=== PATIENT | female | born 1945 | race Caucasian/White ===

== ENCOUNTER 2017-04-07 17:45 | Inpatient (IN) ==
[2017-04-07] MEDS ORDERED: ONDANSETRON 4 MG/2 ML INJECTION IVP ONE (17:55)
[2017-04-07] MEDS ORDERED: HYDROMORPHONE 2 MG/ML INJECTION IVP ONE ×2 (17:55→18:55)
--- NOTE | 2017-04-07 18:29 | Emergency Department Report ---
Lower Extremity Injury HPI - General Chief Complaint: Extremity Injury, Lower Stated Complaint: l hip pain, fall Time Seen by Provider: 04/07/17 18:26 Source: patient, EMS Mode of arrival: EMS Limitations: no limitations - History of Present Illness HPI Narrative: PT presents with left hip pain after falling from a standing position. Pt denies dizziness or lightheadedness, or chest pain prior to fall. Family reports initially pt was holding her right knee which is known to be arthritic and were concerned about additional injury MD complaint: hip injury, knee injury Onset (ago): minute(s) Injury: Left: hip, knee Place: home Severity: moderate Context: fall Other symptoms: none Treatments prior to arrival: splint (per EMS) - Related Data Home Medications Medication Instructions Recorded Confirmed Levothyroxine Tab [Synthroid] 75 mcg PO DAILY #0 02/28/12 04/07/17 Calcium Carbonate [Caltrate] 600 mg PO DAILY 04/07/17 04/07/17 Naproxen [Aleve] 220 mg PO BID PRN 04/07/17 04/07/17 Allergies Allergy/AdvReac Type Severity Reaction Status Date / Time No Known Allergies Allergy Verified 04/07/17 18:36 Review of Systems Constitutional: Denies: fever, chills Cardiovascular: Denies: chest pain Respiratory: Denies: cough, dyspnea Gastrointestinal: Denies: nausea, vomiting, diarrhea Musculoskeletal: Reports: joint swelling, arthralgia Neurological: Denies: headache Psychiatric: Denies: anxiety Endocrine: Denies: fatigue PFSH Patient Stated Medical History Other Musculoskeletal Yes: arthritis - Social History Smoking status: Never smoker Physical Exam - Limitations Limitations: no limitations - General General appearance: alert - Normal Exams: Head:: Normocephalic without trauma Eyes:: Pupils are PERRLA w/ EOMI Neck:: Full range of motion, without adenopathy Chest/Respirations:: Clear all lee, with good airflow, and symmetry bilaterally Cardiovascular:: Regular rate and rhythm, without murmur or gallop, Pulses 2+ all extremities Abdomen:: Bowel sounds positive, soft, non-tender, non-distended Integumentary:: No rashes Neurological:: Patient is alert, and oriented Psychiatric:: Patient exhibits, appropriate attention, emotion and affect - Expanded Lower Extremity Exam Hip/Pelvis exam: Present: normal inspection, tenderness, deformity, external rotation, shortening Knee exam: Present: normal inspection. Absent: tenderness, swelling Lower leg exam: Present: normal inspection (N/V/I). Absent: tenderness, swelling Course Vital Signs Temperature 98.1 F 04/07/17 17:51 Pulse Rate 73 04/07/17 17:51 Respiratory Rate 20 04/07/17 17:51 Pulse Oximetry 100 04/07/17 17:51 Temperature 98.1 F 04/07/17 17:51 Pulse Rate 78 04/07/17 19:02 Respiratory Rate 19 04/07/17 19:02 Blood Pressure 126/72 04/07/17 19:02 Pulse Oximetry 96 04/07/17 19:02 Extremity Injury, Lower - MDM Narrative Medical decision making narrative: Lab and xray reviewed resulting in left femoral head and neck fracture. Labs obtained for baseline for surgery. Pt has received Dilaudid, Zofran, and Valium for pain control with positive result. Dr Michaels notified of diagnostic findings, pt to be admitted to Dr Rodgers the hospitalist - Differential Diagnosis Likely: acute internal derangement of knee, fracture of femur, fracture of hip - Lab Data Attestation: I reviewed the patient's lab results. Result diagrams: 04/07/17 19:21 04/07/17 19:21 Lab Results 04/07/17 Range/Units 19:21 WBC 12.4 H (4.5-11.0) T/MM3 RBC 4.29 (4.00-5.20) M/MM3 Hgb 12.7 (12-16) GM/DL Hct 40.0 (36-46) % MCV 93.2 (80-100) UM3 MCH 29.6 (26-34) UUG MCHC 31.8 (31-37) GM/DL RDW Std Deviation 46.3 (36.9-50.2) FL Plt Count 249 (130-400) T/MM3 MPV 8.8 L (9.4-12.4) UM3 - Radiology Data Attestation: I reviewed the patient's radiology results. Disposition Clinical Impression: Femoral neck fracture Qualifiers: Encounter type: initial encounter Fracture type: closed Laterality: left Qualified Code(s): S72.002A - Fracture of unspecified part of neck of left femur , initial encounter for closed fracture Disposition: 02 To [facility] [place] Acute Care Condition: Improved Additional Instructions: per Dr Michaels Prescriptions: No Action Calcium Carbonate [Caltrate] 600 mg PO DAILY Levothyroxine Tab [Synthroid] 75 mcg PO DAILY #0 Naproxen [Aleve] 220 mg PO BID PRN PRN Reason: Pain Referrals: Ron Lopez MD [Physician] - Time of Disposition: 19:36 - Seen By: tyree
--- NOTE | 2017-04-07 19:49 | History & Physical Report ---
<Jeff Blanc - Last Filed: 04/07/17 21:53> History of Present Illness Date: 04/07/17 Chief complaint: left hip pain s/p fall HPI: Ms Contreras is a 71 y/o female w/ h/o osteoarthritis, Right JOVANNA and hypothyroidism who presents to ED at [facility] [place] brought by EMS d/t mechanical fall on her left hip. Patient states she was bending over to let the dog out, holding on the side of the bed and lost her balance and fell backwards, and fell on her left hip and hit her elbow on the night stand. She noted pain in the left hip after the fall. Daughter in the room at the time of the fall. She also c/o right knee pain as well but does not recall having trauma to the right knee. Patient denies chest pain, dyspnea, lightheadedness, dizziness or recent illness. Patient denies h/o CAD, HTN, HLD, lung issues and DM and states she is otherwise "very active and healthy". In ED, patient had xray left hip which revealed a left femoral head fracture extending into the femoral neck. ER provider discussed the patient's case w/ Dr. Michaels of Orthopedic surgery and he recommended admission to the hospitalist service and he will consult. Patient given Valium 5mg IV x one for muscle spasma, and Dilaudid 0.5mg IV on two separate occasions for pain; Patient also given Zofran 4 mg IV x one. Patient per report is resting more comfortably now. CXR in ER showed no acute changes and EKG showed a sinus rhythm, rate of 75 beats/minute and no ectopy. Patient will be admitted to the Hospitalist service for further evaluation and management. Review of Systems Review of systems: Constitutional: Denies: fever, chills Cardiovascular: Denies: chest pain Respiratory: Denies: cough, dyspnea Gastrointestinal: Denies: nausea, vomiting, diarrhea Musculoskeletal: Reports: joint swelling, arthralgia Neurological: Denies: headache; Denies numbness, tingling and focal weakness Psychiatric: Denies: anxiety Endocrine: Denies: fatigue PFSH Patient Stated Medical History Other Musculoskeletal Yes: arthritis Clinic Medical History Femoral neck fracture (Acute Medical) Hypothyroidism Surgical History: H/o Right JOVANNA Family History: No significant family history reported. H/o "arthritis" on mother's side - Social History Smoking status: Never smoker Medications Home Medications Medication Instructions Recorded Confirmed Type Levothyroxine Tab [Synthroid] 75 mcg PO DAILY #0 02/28/12 04/07/17 History Calcium Carbonate [Caltrate] 600 mg PO DAILY 04/07/17 04/07/17 History Naproxen [Aleve] 220 mg PO BID PRN 04/07/17 04/07/17 History Allergies Allergy/AdvReac Type Severity Reaction Status Date / Time No Known Allergies Allergy Verified 04/07/17 18:36 Exam Vital Signs: Temperature 98.1 F 04/07/17 17:51 Pulse Rate 78 04/07/17 19:02 Respiratory Rate 19 04/07/17 19:02 Blood Pressure 126/72 04/07/17 19:02 Pulse Oximetry 96 04/07/17 19:02 Telemetry Rhythm: Sinus Rhythm Height/Weight/BMI: Height 1.63 m Weight 58.9 kg - Constitutional Present: no acute distress, well nourished, well developed - Routine HEENT Exam Head: Present: normocephalic, atraumatic Eye: Present: EOMI, PERRL ENT: Present: mucous membranes moist - Routine Neck Exam Present: supple, full ROM. Absent: JVD - Routine Respiratory Exam Present: CTA bilaterally - Routine Cardiovascular Exam Present: RRR, S1, S2 - Routine Abdominal Exam Present: soft. Absent: tenderness, non distended - Routine Extremities Exam Absent: cyanosis, clubbing, edema - Routine Skin Exam Present: intact Comments: Mild ecchymosis left elbow - Routine Neurological Exam Present: alert, oriented X3, CN II-XII intact. Absent: sensory deficit - Routine Psychiatric Exam Present: normal affect, normal thought process Results - Labs CBC & Chem 7: 04/07/17 19:21 04/07/17 19:21 Assessment and Plan Assessment and Plan: Assessment: 1) Acute Left hip femoral head/neck fracture s/p mechanical fall 2) Acute left hip pain 3) Acute mild leukocytosis - possibly reactive 4) Hypothyroidism 5) Osteoarthritis - hip/knees followed by Dr. Michaels - had right knee pain and right knee xray tonight and showed no acute process or fracture 6) H/o right hip partial arthroplasty/repair several years ago Plan: Admit to the Hospitalist service Pain control w/ po Acetaminophen and IV Dilaudid 0.5mg q 2 hours prn Continuous pulse oximetry/monitoring Consult Dr. Michaels of Orthopedic Surgery NPO after midnight IVFs that of NS at 75 cc/hour Zofran 4mg IV q 6 hours prn Continue L-Thyroxine DVT prophylaxis - SCDs - will defer post-op to Orthopedic Surgery UA labs in AM including CBC, BMP and Mg level Supportive care Patient's family concerned re: right hip as to whether hardware may have been disrupted d/t fall, though patient does not c/o pain in the Right hip at this time. Discussed possibly having portable xray right hip tonight - Patient and patient's family would like to d/w Dr. Michaels first. DVT Prophylaxis: SCD's Resuscitation Status: Full Code Hospital Course Summary Disclaimer: The visit summary below is not to be considered part of the above Progress Note. <Leroy Conner - Last Filed: 04/08/17 22:27> History of Present Illness Date: 04/08/17 HPI: Read and appreciate Dr. Blanc's note. The 71-year-old woman out of slip and fall and home and has been having excruciating left hip pain and betterment able to bear weight since. This is been well relieved by analgesic medications overnight. She states that she is otherwise been very active in walks nearly every day. Have read the medical history surgical history social history and family history that follow below in Dr. Blanc's note. Agree with the contents [facility] Patient Stated Medical History Sleep Apnea No Anemia Yes: Hx of Other Musculoskeletal Yes: arthritis Clinic Medical History Femoral neck fracture (Acute Medical) Fracture, intertrochanteric, left femur (Acute Medical) Osteoarthritis of left hip (Acute Medical) Exam Vital Signs: Temperature 96.2 F L 04/08/17 19:15 Pulse Rate 75 04/08/17 19:15 Respiratory Rate 14 04/08/17 20:22 Blood Pressure 119/67 04/08/17 19:15 Pulse Oximetry 94 04/08/17 19:15 Height/Weight/BMI: Height 5 ft 4 in Weight 59.6 kg Body Mass Index 22.0 Results - Labs CBC & Chem 7: 04/08/17 03:54 04/08/17 03:54 Assessment and Plan Assessment and Plan: Physical exam: read and agree with the notes above by Dr. Blanc. In addition lung sounds are clear bilaterally with no loss of transmission. Cardiovascular is within normal limits with perhaps very soft 2/6 systolic murmur. The left hip is slightly shorter but not rotated. Assessment and plan agree with the above hip fracture with pain. The leukocytosis appears to be resolved. I have ordered the TSH free T4 as we do not have documentation of this. Pain control is appropriate at this time. Family has considerable questions on surgical options. I've deferred these to Dr. Michaels explained that they are largely based upon blood supply to the ball of the hip, number of fragments and time required before patient is functional again. Medical service will follow the consult of this very pleasant patient Hospital Course Summary Disclaimer: The visit summary below is not to be considered part of the above Progress Note.
[2017-04-07] MEDS ORDERED: ONDANSETRON 4 MG/2 ML INJECTION IVP PRN (20:12)
[2017-04-07] MEDS ORDERED: ACETAMINOPHEN 650 MG SUPPOSITORY PR PRN (20:12)
[2017-04-07] MEDS ORDERED: SENNA + DOCUSATE TABLET PO PRN (20:12)
[2017-04-07 20:16] VITALS: BMI 22.0
[2017-04-07] MEDS: NS 1,000 ML IV SCH (20:51)
[2017-04-07] MEDS: HYDROMORPHONE 2 MG/ML INJECTION IVP PRN (22:40)
[2017-04-07] MEDS ORDERED: SALINE FLUSH 10ml SYRINGE IV PRN (22:44)
[2017-04-08] MEDS ORDERED: LEVOTHYROXINE 75 MCG TABLET PO SCH (06:30)
[2017-04-08] MEDS: HYDROMORPHONE 2 MG/ML INJECTION IVP PRN ×3 (07:01→12:35)
--- NOTE | 2017-04-08 08:05 | XRay Report ---
Indication: pre procedure PROCEDURE: XR chest 1V: Encounter: Initial Comparison: February 28, 2012 Findings: The lungs are stable in appearance without new focal airspace consolidation. There is no pleural effusion or pneumothorax. The heart size, pulmonary vascularity and mediastinal contours are unchanged. IMPRESSION: Stable appearance of the chest without acute cardiopulmonary disease. .
--- NOTE | 2017-04-08 08:06 | XRay Report ---
Indication: fall with left knee pain PROCEDURE: XR knee LT 2V: Encounter: Initial Comparison: None Findings: There is no acute fracture, dislocation or malalignment identified. Views are oblique and suboptimally positioned. Impression: Limited exam without acute osseous abnormality. .
--- NOTE | 2017-04-08 08:07 | XRay Report ---
Indication: fall, rotation and shortening PROCEDURE: XR hip LT min 2V: Encounter: Initial Comparison: None Findings: Comminuted mildly displaced intertrochanteric left femoral fracture. No additional acute fracture or dislocation. Severe osteoarthritis in the left hip joint. No significant angulation on the crosstable lateral view. Impression: Closed posttraumatic left femoral fracture. .
[2017-04-08] MEDS: LEVOTHYROXINE 75 MCG TABLET PO SCH (08:17)
[2017-04-08] MEDS: NS 1,000 ML IV SCH (11:13)
[2017-04-08] MEDS ORDERED: NOZIN NASAL SWAB NAS ONE (13:44)
--- NOTE | 2017-04-08 13:47 | Orthopedic Consult Note ---
Orthopedic Consultation HPI - Consultation Info Consult Date: 04/08/17 Attending Physician: Leroy Conner MD Consult Reason: fracture - History of Present Illness Mrs. Contreras is a 71 year old female who had a mechanical fall on her left hip 04/07/17 resulting in a left intratrochanteric hip fracture. She lost her balance and fell backwards while bending over to let the dog out. She hit the night stand with her left elbow and landed on her left hip. She had immediate pain in the hip and inability to walk. She was evaluated in the ER where X- rays of the left hip showed an IT fracture. Dr. Michaels was consulted for definitive surgical management. The Hospitalist did admit for medical management. She has a history of OA, Right JOVANNA, hypothyroidism. She denies CP/ SOB, paraesthesias. X-ray of the left knee is negative for fracture, chest X- ray shows no acute changes, EKG shows NSR. Labs are reviewed and are acceptable. This patient was seen and evaluated by Dr. Michaels today. He is recommending left hip IM nail later this evening. Her last solid food was yesterday. She did have water and Jello this AM. Nurse has kept her NPO since noon. Review of Systems - Constitutional Constitutional: Absent: chills, fatigue - EENT Eyes: Absent: blurry vision Ears, nose, mouth, throat: Absent: headaches - Cardiovascular Cardiovascular: Absent: chest pain - Respiratory Respiratory: Absent: cough - Gastrointestinal Gastrointestinal: Absent: abdominal pain - Genitourinary Genitourinary General: Absent: chills - Musculoskeletal Musculoskeletal: Present: as per HPI - Integumentary/Breasts Integumentary: Absent: erythema, rash - Neurological Neurological: Absent: numbness, paresthesias - Psychiatric Psychiatric: Absent: anxiety - Endocrine Endocrine: Absent: cold intolerance PFSH Patient Stated Medical History Anemia Yes: Hx of Other Musculoskeletal Yes: arthritis Clinic Medical History Femoral neck fracture (Acute Medical) Surgical History: H/o Right JOVANNA - Social History Smoking status: Never smoker Medications Home Medications Medication Instructions Recorded Confirmed Type Levothyroxine Tab [Synthroid] 75 mcg PO DAILY #0 02/28/12 04/07/17 History Calcium Carbonate [Caltrate] 600 mg PO DAILY 04/07/17 04/07/17 History Naproxen [Aleve] 220 mg PO BID PRN 10/31/17 10/31/17 History Allergies Allergy/AdvReac Type Severity Reaction Status Date / Time No Known Allergies Allergy Verified 04/07/17 18:36 Orthopedic Exam Vital signs: Temperature 97.8 F 04/08/17 08:00 Pulse Rate 88 04/08/17 08:00 Respiratory Rate 18 04/08/17 08:00 Blood Pressure 133/72 04/08/17 08:00 Pulse Oximetry 97 04/08/17 08:00 - Constitutional General Appearance: Present: alert, orientated x3, mild distress - Respiratory Exam Present: non-labored - Cardiovascular Exam Present: pedal pulses intact Capillary Refill: < 2-3 Seconds - Abdominal Exam Absent: tenderness - Extremities Exam Absent: cyanosis, clubbing, edema - Integumentary Exam Present: pink, warm, dry - Lymphatic Lymphatic: Absent: lymphedema - Neurological Exam Present: intact to light touch, no deficits - Psychiatric Exam Present: normal affect - Labs Result Diagrams: 04/08/17 03:54 04/08/17 03:54 Abnormal lab results 04/07/17 04/08/17 04/08/17 Range/Units 23:48 03:54 03:54 MPV 9.0 L (9.4-12.4) UM3 Neutrophils % (Manual) 92.0 H (33-66) % Lymphocytes % (Manual) 3.0 L (23-45) % Neutrophils # (Manual) 9.3 H (1.8-7.7) T/MM3 Lymphocytes # (Manual) 0.3 L (1-4.8) T/MM3 Chloride 108 H (98-107) MEQ/L Glucose 159 H (65-110) MG/DL Urine Ketones 2+ A (NEGATIVE) H & H 04/08/17 Range/Units 03:54 Hgb 12.5 (12-16) GM/DL Hct 39.1 (36-46) % - Diagnostic results Hip x-ray: report reviewed, image reviewed Knee x-ray: report reviewed Impression and Recommendation (1) Fracture, intertrochanteric, left femur Current visit: Yes Qualifiers: Encounter type: initial encounter Fracture type: closed Fracture alignment: displaced Qualified Code(s): S72.142A - Displaced intertrochanteric fracture of left femur, initial encounter for closed fracture Status: Acute Dr. Michaels is recommending IM nail. The fact that the patient has severe underlying hip DJD was discussed. Risks and benefits of the recommended procedure were discussed with the patient and/or patient's legal manufacturers representative. They include: infection, nerve damage, artery damage, stroke, WI, PE, DVT, ileus, continued pain, or risk that the injury may not heal despite surgery. There are also medical risks of anesthesia. Risks are not limited to the above mentioned alone. Keep NPO consent IV pain medication for comfort to OR this evening. (2) Osteoarthritis of left hip Current visit: Yes Qualifiers: Osteoarthritis type: primary Qualified Code(s): M16.12 - Unilateral primary osteoarthritis, left hip Status: Acute Hospital Course Summary Disclaimer: The visit summary below is not to be considered part of the above Progress Note.
[2017-04-08] MEDS ORDERED: BUPIVACAINE 0.25% (2.5mg/ml) PF 30ml INJECTION ONE (14:29)
[2017-04-08] MEDS ORDERED: LIDOCAINE 1% (10mg/ml) 30ml SDV INJ ONE (14:29)
[2017-04-08] MEDS ORDERED: FentaNYL 100 MCG/2 ML INJECTION ONE (14:32)
[2017-04-08] MEDS ORDERED: PROPOFOL 500 MG/50 ML VIAL IV ONE (14:32)
[2017-04-08] MEDS ORDERED: KETAMINE 500 MG/10 ML INJECTION ONE (14:33)
[2017-04-08] MEDS ORDERED: FAMOTIDINE PB 20 MG/50 ML BAG IV ONE (14:34)
[2017-04-08] MEDS ORDERED: LR 1,000 ML IV SCH (14:45)
--- NOTE | 2017-04-08 14:50 | Anesthesia Preoperative Report ---
Anesthesia Preoperative Record - Date and Time Date: 04/08/17 Preoperative Diagnosis: Left hip fx/pain s/p mechanical fall NPO Since Date: 04/08/17 NPO Since Time: 11:00 (a couple bites of orange jello) Allergies/Adverse Reactions: Allergies Allergy/AdvReac Type Severity Reaction Status Date / Time No Known Allergies Allergy Verified 04/07/17 18:36 - Vital Signs Vital Signs: Temperature 98.6 F 04/08/17 14:33 Pulse Rate 86 04/08/17 14:39 Respiratory Rate 16 04/08/17 14:33 Blood Pressure 138/63 04/08/17 14:33 Pulse Oximetry 97 04/08/17 14:33 Height and Weight: Height 1.63 m Weight 59.6 kg Body Mass Index 22.0 - Medications Inpatient Medications: Current Medications Acetaminophen (Tylenol Supp) 650 mg PA Q5H PRN PRN Reason: Pain Hydromorphone HCl (Dilaudid) 0.5 mg IVP Q2H PRN PRN Reason: Pain Last Admin: 04/08/17 12:35 Dose: 0.5 mg Sodium Chloride (Normal Saline) 1,000 mls @ 75 mls/hr IV .[id number] [facility] Last Admin: 04/08/17 11:13 Dose: 75 mls/hr Famotidine/Sodium Chloride (Pepcid Premix) 20 mg in 50 mls @ 100 mls/hr IV PREOP ONE Stop: 04/08/17 15:03 Last Admin: 04/08/17 14:36 Dose: 100 mls/hr Lactated Ringer's (Lactated Ringers) 1,000 mls @ 50 mls/hr IV .Q20H [facility] Last Admin: 04/08/17 14:39 Dose: 50 mls/hr Influenza Virus Vaccine (Fluzone Hd Vac) 0.5 ml IM .ONCE ONE Stop: 04/09/17 09:01 Levothyroxine Sodium (Synthroid) 75 mcg PO 0800 [facility] Last Admin: 04/08/17 08:17 Dose: 75 mcg Ondansetron HCl (Zofran) 4 mg IVP Q6H PRN PRN Reason: Nausea &/or vomiting Senna/Docusate Sodium (Senna Plus Tablet) 1 tab PO BID PRN PRN Reason: Constipation Sodium Chloride (Iv Flush) 10 ml IV PRN PRN PRN Reason: Flushing Home Medications: Home Medications Medication Instructions Recorded Confirmed Type Levothyroxine Tab [Synthroid] 75 mcg PO DAILY #0 02/28/12 04/07/17 History Calcium Carbonate [Caltrate] 600 mg PO DAILY 04/07/17 04/07/17 History Naproxen [Aleve] 220 mg PO BID PRN 04/07/17 04/07/17 History Is Patient on Beta Aramis?: No - Medical History Renal/Endocrine: Reports: Thyroid Disease - Surgical History HEENT Surgeries: Reports: Other ([place] teeth removed) GI Surgery/Treatments: Reports: Colonoscopy Musculoskeletal Surgery/Tx: Reports: Total Hip Replacement (right hip), Other ( Left arm break as child) Anesthesia Reactions: None Hx Family Anesthesia Reaction: No History of Motion Sickness: No - Social History Smoking Status: Never smoker Hx Chewing Tobacco Use: No Second Hand Exposure: No Substance Use Type: does not use Alcohol Intake Frequency: does not drink - Pertinent Findings Laboratory: CBC and BMP 04/08/17 03:54 04/08/17 03:54 BMP 04/08/17 03:54 Sodium 139 Potassium 4.0 Chloride 108 H Carbon Dioxide 24 BUN 16.0 Creatinine 0.7 Glucose 159 H Calcium 8.8 Urine 04/07/17 Range/Units 23:48 Urine Color Yellow (YELLOW) Urine Clarity Clear Urine pH 6.0 (5.0-8.0) Ur Specific [place] 1.025 (1.015-1.025) Urine Protein Negative (NEGATIVE) Urine Glucose (UA) Negative (NEGATIVE) EKG: Sinus Rhythm - Physical Exam Respiratory Exam: Present: lungs clear Cardiovascular Exam: Present: regular rate and rhythm - Airway Assessment Mallampati Score: I TMD: 3 Fingerbreadths Neck Extension: fair Overall Assessment: may be difficult intubation (small mouth opening) - ASA ASA Score: 2, E - Plan Anesthesia: General TIVA, General Inhalation Gases - Discussion Discussion: Discussed risks/options/alternatives of anesthesia and questions answered. Patient consents. Nursing pain assessment noted. Present for Discussion: family member Attestation Statement: Prior to the delivery of any anesthetic medication, I examined the patient, developed the plan, obtained the patient's consent and discussed the risk and benefits of the procedure with the patient/guardian. - Additional Information Seen by Anesthesia: Yes
[2017-04-08] MEDS ORDERED: CEFAZOLIN 1 G INJECTION IVP ONE (14:54)
[2017-04-08] MEDS ORDERED: ONDANSETRON 4 MG/2 ML INJECTION ONE (15:26)
[2017-04-08] MEDS ORDERED: DEXAMETHASONE 4 MG/ML INJECTION ONE (15:26)
[2017-04-08] MEDS ORDERED: HYDROMORPHONE 2 MG/ML INJECTION ONE (15:36)
[2017-04-08] MEDS ORDERED: BUPIV 0.25% 30ml/LIDO 1% 30ml MIXTURE ID ONE (15:43)
[2017-04-08] MEDS ORDERED: HYDROMORPHONE 2 MG/ML INJECTION IVP PRN (15:47)
[2017-04-08] MEDS ORDERED: METOCLOPRAMIDE 10mg/2ml INJECTION IVP PRN (15:47)
[2017-04-08] MEDS ORDERED: PROPOFOL 20 ML ONE (16:01)
--- NOTE | 2017-04-08 16:41 | Remote Fluorsocopy Report ---
Indication: ORIF L HIP PROCEDURE: RF hip LT 2 view: Encounter: Initial Comparison: Left hip radiograph dated April 07, 2017 Findings: 16 fluoroscopic spot images are submitted for interpretation. Images show open reduction and internal fixation of the left femoral fracture with placement of an intramedullary nail and dynamic compression screw. Improved alignment of the fracture fragments. Two distal interlocking screws. Impression: Intraoperative fluoroscopy as above. Fluoroscopy time is 164.9 seconds. Fluoroscopy dose is 2280 mRad. .
--- NOTE | 2017-04-08 16:52 | Anesthesia Postoperative Note ---
- Date and Time Date: 04/08/17 Time: 16:52 - Status Vital Signs: Temperature 98.7 F 04/08/17 16:37 Pulse Rate 72 04/08/17 16:45 Respiratory Rate 14 04/08/17 16:45 Blood Pressure 142/72 H 04/08/17 16:45 Pulse Oximetry 98 04/08/17 16:45 Respiratory Function: Airway Patent, Regular Respirations Cardiovascular Function: Regular Pulse Mental Status: Alert and Oriented Pain Intensity: 0 Hydration: IV Infusing Complications During Recover: None Apparent - Follow-Up Instructions Instructions: Per Surgeon
[2017-04-08] MEDS: NOZIN NASAL SWAB NAS SCH ×2 (18:00→23:38)
[2017-04-08] MEDS: ENOXAPARIN 40 MG/0.4 ML INJECTION SQ SCH (22:14)
[2017-04-08] MEDS: CEFAZOLIN 1 G in NS 100 ML IV SCH (23:37)
[2017-04-09] MEDS: NOZIN NASAL SWAB NAS SCH ×4 (00:26→18:08)
[2017-04-09] MEDS: NS 1,000 ML IV SCH ×2 (03:45→18:06)
[2017-04-09] MEDS: CEFAZOLIN 1 G in NS 100 ML IV SCH (06:35)
[2017-04-09] MEDS: LEVOTHYROXINE 75 MCG TABLET PO SCH ×2 (06:35→08:07)
--- NOTE | 2017-04-09 07:56 | Orthopedic Progress Note ---
Date: Subjective/Severity of Illness: Mrs. Contreras states she has no pain this AM. She has yet to mobilize. She denies chest pain or shortness of breath. She had some confusion last night as per her family, but this has completely resolved. Orthopedic Objective PO Vital signs: Temperature 99.2 F 04/09/17 03:55 Pulse Rate 110 H 04/09/17 03:55 Respiratory Rate 18 04/09/17 03:55 Blood Pressure 149/83 H 04/09/17 03:55 Pulse Oximetry 96 04/09/17 03:55 Height and Weight: Height 5 ft 4 in Weight 131 lb 6.328 oz Body Mass Index 22.0 - Constitutional General Appearance: Present: alert, orientated x3, mild distress - Respiratory Exam Present: non-labored - Cardiovascular Exam Present: pedal pulses intact Capillary Refill: < 2-3 Seconds - Abdominal Exam Absent: tenderness - Extremities Exam Extremities: Present: pulses intact. Absent: calf tenderness - Hip Exam Hip Exam: Present: IR-limited, ER- limited. Absent: unequal leg length - Surgical Site Incision: dressing intact, no drainage - Integumentary Exam Present: pink, warm, dry - Lymphatic Lymphatic: Absent: lymphedema - Neurological Exam Present: intact to light touch, no deficits - Psychiatric Exam Present: normal affect - Labs Result Diagrams: 04/09/17 03:58 04/09/17 03:58 Abnormal lab results 04/09/17 04/09/17 Range/Units 03:58 03:58 RBC 3.81 L (4.00-5.20) M/MM3 Hgb 11.4 L (12-16) GM/DL Hct 35.9 L (36-46) % Neut % (Auto) 83.1 H (33-66) % Lymph % (Auto) 10.8 L (23-45) % Neut # (Auto) 8.3 H (1.8-7.7) T/MM3 Chloride 110 H (98-107) MEQ/L Glucose 120 H (65-110) MG/DL H & H 04/08/17 04/09/17 Range/Units 03:54 03:58 Hgb 12.5 11.4 L (12-16) GM/DL Hct 39.1 35.9 L (36-46) % Orthopedic Assessment and Plan (1) Fracture, intertrochanteric, left femur Status: Acute Qualifiers: Encounter type: initial encounter Fracture type: closed Fracture alignment: displaced Qualified Code(s): S72.142A - Displaced intertrochanteric fracture of left femur, initial encounter for closed fracture Assessment and Plan: s/p long IM ofelia for Left IT fracture by Dr. Michaels on 04/08/17 Lovenox 40mg SQ Q day for DVT prevention PT/OT for mobility pain and bowel management WBAT (2) Osteoarthritis of left hip Status: Acute Qualifiers: Osteoarthritis type: primary Qualified Code(s): M16.12 - Unilateral primary osteoarthritis, left hip - Anticoagulation Therapy Anticoagulation: Lovenox 40 mg SQ Daily x 30 days from day of surgery Hospital Course Summary Disclaimer: The visit summary below is not to be considered part of the above Progress Note.
[2017-04-09] MEDS ORDERED: INFLUENZA VAC High Dose 2017-18 (Fluzone HD*) (>=65yo) 0.5ml IM ONE (09:00)
[2017-04-09] MEDS: TRAMADOL 50 MG TABLET PO PRN ×2 (09:14→23:08)
[2017-04-09] MEDS ORDERED: ACETAMINOPHEN 325 MG TABLET PO PRN (09:29)
[2017-04-09] MEDS ORDERED: IBUPROFEN 600 MG TABLET PO PRN (09:30)
[2017-04-09] MEDS: ACETAMINOPHEN 325 MG TABLET PO PRN (10:01)
[2017-04-09] MEDS: POLYETHYL GLYCOL 3350 17gm PACKET PO SCH (12:44)
[2017-04-09] MEDS: DOCUSATE SODIUM 100 MG CAPSULE PO SCH ×2 (12:44→20:59)
--- NOTE | 2017-04-09 13:29 | Operative Note ---
DATE OF PROCEDURE 04/08/2017 PREOPERATIVE DIAGNOSIS Left 4-part intertrochanteric hip fracture. POSTOPERATIVE DIAGNOSIS Left 4-part intertrochanteric hip fracture. PROCEDURE Open reduction and cephalomedullary fixation of left hip fracture. SURGEON Andrew Michaels MD ANESTHESIA TIVA COMPLICATIONS None. EBL AND FLUIDS Please see Anesthetic Record. DESCRIPTION OF PROCEDURE Mrs. Contreras and her left hip were identified and marked in the preoperative holding area. She was brought back to the operating suite and placed supine on the fracture table. She was placed under general anesthesia. Both feet were placed in well-padded traction boots. The left leg was placed into traction in internal rotation and the right leg was placed into extension without traction. Fluoroscopic imaging confirmed reduction. The left lower extremity was prepped and draped in my normal sterile fashion. Time-out was performed. A 3 cm incision was made proximal to the greater trochanter. The proximal femur was opened over a guidepin. I then placed a long guide ofelia the femur and reamed to an 11.5. We then measured for a 360 mm nail and placed an 11 x 360 mm left gamma nail over the guide ofelia. The guide ofelia was removed. At this point I did bring a bone hook into a second incision around the medial calcar to help reduce it into place. This was done as a lag screw was placed into a center-center location into the femoral head. It was a 90 mm screw and achieved excellent bite. I did use the compression device to provide compression at the fracture site. The screw was then locked proximally. The aiming arm was removed. Multiple fluoroscopic images including live images were used to confirm good fracture reduction and hardware placement. I then placed two interlocking screws distally from lateral to medial using perfect [place] technique through two small poke holes. All wounds were then thoroughly irrigated and closed with 2-0 Vicryl in the subcutaneous tissue followed by Monocryl in the subcuticular layer followed by Dermabond and a sterile dressing. The drapes were then removed. The patient was taken off the fracture table and allowed to awaken from general anesthesia and taken to the Recovery Room under the care of Anesthesia. She tolerated the procedure well. There were no complications. CRISTI
--- NOTE | 2017-04-09 20:46 | Progress Note ---
- Date 04/09/17 Subjective: Found by family. Daughter is distressed that the left thigh that was operated on is now showing a red rash in the surrounding area. She is very concerned that this might be shingles. On discussion with the patient she denies that the skin is painful. Admits that the surgery site itself is sore through the hip denies complaint of dysthesia in the region Objective Vital signs: Temperature 98.9 F 04/09/17 20:07 Pulse Rate 87 04/09/17 20:07 Respiratory Rate 18 04/09/17 20:07 Blood Pressure 139/69 04/09/17 20:07 Pulse Oximetry 94 04/09/17 20:07 Height/Weight/BMI: Height 5 ft 4 in Weight 59.6 kg Body Mass Index 22.0 - Constitutional Present: well nourished, well developed - Routine HEENT Exam Eye: Present: EOMI ENT: Present: mucous membranes moist, dentition normal - Routine Respiratory Exam Present: CTA bilaterally. Absent: wheezes - Routine Cardiovascular Exam Present: RRR, S1, S2, murmur - Routine Abdominal Exam Present: soft, normoactive bowel sounds, non distended. Absent: tenderness - Routine Extremities Exam Present: normal capillary refill, tenderness - Routine Skin Exam Present: dry, warm Comments: Dressing is dry and intact there is a pale pink rash of up pupuric nature. It is superficial in the dermal layer and blanches to touch. Appears to be morbid skin sensitivity to the antiseptic wash performed pre-surgically - Routine Neurological Exam Present: alert, oriented X3, CN II-XII intact - Routine Lymphatic Exam Lymphatic: Absent: adenopathy - Routine Psychiatric Exam Present: normal affect, cooperative Results - Labs CBC & Chem 7: 04/09/17 03:58 04/09/17 03:58 Assessment and Plan (1) Acute pain due to trauma Current visit: Yes Status: Acute (2) Rash at application site Current visit: Yes Status: Acute (3) Fracture, intertrochanteric, left femur Current visit: Yes Status: Acute Assessment and Plan: Assessment and plan: patient's pain appears to be well tolerated. There is no evidence of infection localized rash. This is certainly not shingles and is nontender to light touch where severe dysesthesia would be expected. Patient appears to be attempting for limb already. Likely will require only a short course physical therapy for recovery - Time spent with patient Time with patient PN: 25 minutes Hospital Course Summary Disclaimer: The visit summary below is not to be considered part of the above Progress Note.
[2017-04-09] MEDS: ENOXAPARIN 40 MG/0.4 ML INJECTION SQ SCH (20:59)
[2017-04-10] MEDS: NOZIN NASAL SWAB NAS SCH ×2 (02:13→10:44)
[2017-04-10 06:55] VITALS: O2SAT 96
[2017-04-10] MEDS: NS 1,000 ML IV SCH (08:22)
[2017-04-10] MEDS ORDERED: MAGNESIUM CITRATE 296ml PO ONE (09:00)
[2017-04-10] MEDS: DOCUSATE SODIUM 100 MG CAPSULE PO SCH (09:07)
[2017-04-10] MEDS: POLYETHYL GLYCOL 3350 17gm PACKET PO SCH (09:07)
[2017-04-10] MEDS: ACETAMINOPHEN 325 MG TABLET PO PRN (09:11)
[2017-04-10] MEDS: LEVOTHYROXINE 75 MCG TABLET PO SCH (09:13)
--- NOTE | 2017-04-10 10:13 | Orthopedic Progress Note ---
Date: Subjective/Severity of Illness: Dian is up eating breakfast. Pain is controlled. No concerns at this time. She was up with PT yesterday. Orthopedic Objective PO Vital signs: Temperature 98.6 F 04/10/17 08:19 Pulse Rate 92 04/10/17 08:19 Respiratory Rate 16 04/10/17 08:19 Blood Pressure 141/71 H 04/10/17 08:19 Pulse Oximetry 96 04/10/17 08:19 Height and Weight: Height 5 ft 4 in Weight 133 lb 2.547 oz Body Mass Index 22.0 - Constitutional General Appearance: Present: alert, no acute distress - Respiratory Exam Present: non-labored - Extremities Exam Extremities: Present: pulses intact. Absent: calf tenderness - Surgical Site Incision: dressing intact - Integumentary Exam Present: pink, warm, dry - Neurological Exam Present: no deficits - Psychiatric Exam Present: alert, normal affect - Labs Result Diagrams: 04/10/17 04:26 04/10/17 04:26 Abnormal lab results 04/10/17 04/10/17 Range/Units 04:26 04:26 RBC 3.58 L (4.00-5.20) M/MM3 Hgb 10.6 L (12-16) GM/DL Hct 33.7 L (36-46) % MPV 9.1 L (9.4-12.4) UM3 Neut % (Auto) 75.5 H (33-66) % Lymph % (Auto) 15.9 L (23-45) % Potassium 3.4 L (3.6-5) MEQ/L Chloride 108 H (98-107) MEQ/L Anion Gap 4 L (5-15) MEQ/L Calcium 8.1 L (8.4-10.2) MG/DL H & H 04/08/17 04/09/17 04/10/17 Range/Units 03:54 03:58 04:26 Hgb 12.5 11.4 L 10.6 L (12-16) GM/DL Hct 39.1 35.9 L 33.7 L (36-46) % Orthopedic Assessment and Plan (1) Fracture, intertrochanteric, left femur Status: Acute Qualifiers: Encounter type: initial encounter Fracture type: closed Fracture alignment: displaced Qualified Code(s): S72.142A - Displaced intertrochanteric fracture of left femur, initial encounter for closed fracture Assessment and Plan: s/p long IM ofelia for Left IT fracture by Dr. Michaels on 04/08/17 Lovenox 40mg SQ Q day for DVT prevention PT/OT for mobility pain and bowel management WBAT F/U in ortho clinic in 3 weeks. (2) Osteoarthritis of left hip Status: Acute Qualifiers: Osteoarthritis type: primary Qualified Code(s): M16.12 - Unilateral primary osteoarthritis, left hip Hospital Course Summary Disclaimer: The visit summary below is not to be considered part of the above Progress Note.
--- NOTE | 2017-04-10 12:35 | Discharge Summary ---
<Sheila Briseno Gracy - Last Filed: 04/10/17 12:32> Discharge Information Date of admission: 04/07/17 19:30 Anticipated date of discharge: 04/10/17 Attending Physician: Leroy Conner MD Primary care physician: Deyanira Hamilton APRN Consults: Dr. Michaels - Discharge Diagnosis (1) Fracture, intertrochanteric, left femur Status: Resolved (2) Rash at application site Status: Acute Leukocytosis, suspect reactive - RESOLVED Mild ABLA, stable - Procedures Procedures: 04/08/17 Open reduction and cephalomedullary fixation of left hip fracture. - Laboratory Labs: 04/10/17 04:26 04/10/17 04:26 - Radiology Radiology: CXR - stable Left hip/pelvis x-rays - left femoral IT fracture; severe OA in hip joint History of Present Illness HPI: The 71-year-old woman out of slip and fall and home and has been having excruciating left hip pain and unable to bear weight since. This is been well relieved by analgesic medications overnight. She states that she is otherwise been very active in walks nearly every day. Objective Vital signs: Temperature 98.6 F 04/10/17 08:19 Pulse Rate 92 04/10/17 08:19 Respiratory Rate 16 04/10/17 08:19 Blood Pressure 141/71 H 04/10/17 08:19 Pulse Oximetry 96 04/10/17 08:19 Height/Weight/BMI: Height 1.63 m Weight 60.4 kg Body Mass Index 22.0 - Constitutional Present: no acute distress, thin - Routine HEENT Exam Head: Present: normocephalic Eye: Present: PERRL. Absent: conjunctival icterus ENT: Present: mucous membranes moist - Routine Respiratory Exam Present: CTA bilaterally - Routine Cardiovascular Exam Present: RRR, S1, S2 - Routine Abdominal Exam Present: soft, normoactive bowel sounds, non tender - Routine Extremities Exam Present: no edema - Routine Skin Exam Present: dry, warm - Routine Neurological Exam Present: alert - Routine Psychiatric Exam Present: normal affect, cooperative Hospital Course This is a general summary of the patient's hospital course. For more details refer to the complete medical record. Hospital course: DISCHARGE DIAGNOSES Left hip fracture, s/p Open reduction and cephalomedullary fixation of left hip fracture. Leukocytosis, suspect reactive - RESOLVED Mild ABLA, stable Hypokalemia Hypothyroidism OA Suspect dementia HOSPITAL COURSE SUMMARY Dian was admitted in the evening of 04/07/17 with a left hip fracture. Dr. Michaels was consulted and took her to surgery on 04/08/17. Mild leukocytosis was noted on admit but this resolved by hospital day #2. She had mild postop confusion but this improved by discharge. She developed a mild rash to her left thigh after surgery, which was felt unlikely to be infection or shingles and more likely a contact dermatitis - the rash resolved by discharge. Hgb declined mildly following the injury, but was stable at 10.6 on discharge. K was slightly low on discharge at 3.4, and oral replacement was provided. Ortho service recommended Lovenox x 1 month for VTE PPX, PT/OT, WBAT, F/U in 3 weeks. DC to SNF with plans to go to [facility] later in the week. F/U with Deyanira Loomis APRN, in about 1 week. She was discharged with her in stable condition , and both verbalized an understanding of these instructions. Time spent with patient: greater than 35 minutes DVT Prophylaxis: Lovenox Discharge Plan - Discharge Disposition Discharge Date: 04/10/17 Disposition: 03 To SNU Not [facility] (SNF) *Condition: Improved *Reason For Visit: Left hip fx/pain s/p mechanical fall - Discharge Medications *Discharge Medications: New Enoxaparin Sodium [Lovenox] 40 mg SQ Q24H #28 syringe Ibuprofen [Motrin] 600 mg PO Q6H PRN tablet PRN Reason: Pain Senna + Docusate [Senna Plus Tablet] 1 tab PO BID PRN tablet PRN Reason: Constipation Acetaminophen [Tylenol] 325 - 650 mg PO Q6H PRN tablet PRN Reason: Pain PEG 3350 17gm PACKET [Miralax] 17 gm PO DAILY packet Tramadol [Ultram] 50 - 100 mg PO Q6H PRN #30 tab PRN Reason: Pain Continue Calcium Carbonate [Caltrate] 600 mg PO DAILY Levothyroxine Tab [Synthroid] 75 mcg PO DAILY #0 Discontinued Naproxen [Aleve] 220 mg PO BID PRN PRN Reason: Pain - Discharge Packet/Instructions *Diet: Regular *Activity: WBAT. PT/OT *Pain Management/Treatment: Tylenol, Ibuprofen (take with food), Rx Ultram *Wound Care: Keep dressing in place. Contact Dr. Michaels's office with concerns. Additional Instructions: Please contact [facility] to arrange a follow up appointment with Deyanira - you may wait until you are at [facility], because Deyanira can see you there. *Expected Signs/Symptoms: Hip pain and gait abnormality should improve with time and therapy. You may have problems with constipation because of Ultram - take stool softeners and MiraLAX until you no longer need Ultram and you are walking and eating well. *Notify Physician if: Signs of infection such as fever, redness, drainage, swelling, or increased pain; leg swelling or shortness of breath or chest pain; confusion or stroke-like symptoms; or any new concerns *During Business Hours Contact: Contact Dr. Michaels's office or [facility] *After Business Hours Contact: Contact [facility] and ask to speak with the on-call provider. If symptoms are dire, please call 911. *Pending Lab/Results: No Pending Lab Outpatient Orders: BMP - Basic Metabolic - AMS Time Frame: 5 Days, Location: Determined By Patient CBC w Auto Diff-AMS Time Frame: 5 Days, Location: Determined By Patient - Referrals/Follow Up *Referrals/Follow Up: Deyanira Hamilton APRN [Family Provider] - 1 Week Andrew Michaels MD [Physician] - 3 Weeks - Patient Handouts Patient Handouts: [facility] [place]o Postop Instructions - Dismissal Complete Discharge Instructions are:: Complete <Leroy Conner - Last Filed: 04/10/17 21:59> Discharge Information Date of admission: 04/07/17 19:30 Attending Physician: Leroy Conner MD Primary care physician: Deyanira Hamilton APRN Consults: 04/09/17 IRU Screening [Inpatient Rehab Screening] [CONS] Routine 04/09/17 11:40 Physician Consult [CONS] Routine Consulting Provider: Flor Dillard Reason For Exam: SNU Ordering Provider has Notified Information Assurance Officer: Yes 04/09/17 11:41 Physician Consult [CONS] Routine Consulting Provider: Carmencita Prabhakar Reason For Exam: SNU Ordering Provider has Notified Information Assurance Officer: Yes 04/10/17 12:08 Physician [Physician Consult] [CONS] Routine Consulting Provider: Emil Welch Reason For Exam: CONT CARE Ordering Provider has Notified Information Assurance Officer: Yes - Discharge Diagnosis (1) Fracture, intertrochanteric, left femur Status: Resolved (2) Rash at application site Status: Acute - Laboratory Labs: 04/10/17 04:26 04/10/17 04:26 - Microbiology Seen and examined patient on same day as the above note. Agree with history, physical, assessment and plan. Comprehensive physical findings correlate to the above note. Documented on Dragon speech to text. Efforts to correct speech recognition errors performed, but variation may exist Objective Vital signs: Temperature 98.5 F 04/10/17 12:51 Pulse Rate 85 04/10/17 12:51 Respiratory Rate 20 04/10/17 12:55 Blood Pressure 123/70 04/10/17 12:51 Pulse Oximetry 96 04/10/17 12:51 Height/Weight/BMI: Height 5 ft 4 in Weight 60.4 kg Body Mass Index 22.0 Hospital Course This is a general summary of the patient's hospital course. For more details refer to the complete medical record.
[2017-04-10 12:52] VITALS: BP 123/70; PULSE 85; TEMP 98.5
[2017-04-10 12:55] VITALS: RESP 20
--- NOTE | 2017-04-10 13:14 | Extended Care Facility Orders ---
Admission Orders Admit to:: Half-Way Allergies/Adverse Reactions: Allergies No Known Allergies Allergy (Verified 04/07/17 18:36) Admitting Diagnosis: Left hip fx/pain s/p mechanical fall Admitting Physician: Leroy Conner MD Attending Physician: Leroy Conner MD Code Status: Full Code Anticiapted Length of Stay: 30 days or less Rehab Potential: good Rehab Prognosis: good Diet: Regular Diet Wound/Incision Care: Keep dressing intact. Contact Dr. Michaels's office with questions. Monitor for infection - fever, redness, drainage, swelling, increased pain. May use Facility Protocol or Standing Orders: Yes May have flu vaccine: Yes Evaluations/Treatment: PT, OT Half-Way Certification: I certify that SNF services are required to be given on an Inpatient basis because of the patient's need for longterm care on a continuing basis for the condition(s) for which she received inpatient hospital services prior to her transfer to the SNF. SNF inpatient care is necessary for the following reasons Indication for Half-Way: Postop Assessment Care, Other (PT/OT) - Additional Information In Event of Arrest: Start CPR,call 911,send patient to the ER Resident is Aware of Diagnosis: Yes Laboratory/Radiology: BMP and CBC in 5 days. Fax results to Deyanira Hamilton APRN. Referrals: Andrew Michaels MD [Physician] - 3 Weeks Deyanira Hamilton APRN [Family Provider] - 1 Week
== END 2017-04-10 15:05 | DRG 481 ==
LOC: ED 17:45 → SUATTDRO 19:30 → SRG 19:30
PROVIDERS: ADMIT Internal Medicine; ATTEND Family Medicine